=== PATIENT | male | born 1990 | race Caucasian/White ===

== ENCOUNTER 2019-06-05 20:23 | Emergency (ER) | payer BC, OTHER ==
[~2019-06-05] VITALS: Ht 165.1 cm; Wt 86.2 kg
[~2019-06-05 20:23] MED LIST: ARIP10TA9; DIVA500T2 PO
[2019-06-05 20:34] VITALS: BP 136/113
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
[2019-06-05] MEDS ORDERED: TDAP [DIPH/PERTUSSIS/TET] 0.5 ML VIAL IM ONE (21:00)
--- NOTE | 2019-06-05 21:06 | NUR ---
PT ELOPED FROM FACILITY AWARE, REFUSING TREATMENT, AMBULATORY A/OX4
== END 2019-06-05 21:08 | disposition left against medical advice (07) ==
LOC: ER 20:28
DX: S01.21XA Laceration without foreign body of nose, initial encounter (principal); S09.8XXA Other specified injuries of head, initial encounter; R04.0 Epistaxis; F10.10 Alcohol abuse, uncomplicated; F17.200 Nicotine dependence, unspecified, uncomplicated; Y90.9 Presence of alcohol in blood, level not specified; Z79.899 Other long term (current) drug therapy; W22.8XXA Striking against or struck by other objects, initial encounter; Y93.89 Activity, other specified; Y92.89 Other specified places as the place of occurrence of the external cause; Y99.8 Other external cause status

== ENCOUNTER 2023-12-21 19:51 | Emergency (ER) | payer BC ==
[~2023-12-21] VITALS: Ht 175.3 cm; Wt 81.6 kg
[2023-12-21 20:31] VITALS: BP 145/92; TEMP 98.6; O2SAT 98
== END 2023-12-21 20:34 ==
LOC: ER 20:04
DX: F15.10 Other stimulant abuse, uncomplicated (principal); R45.6 Violent behavior